=== PATIENT | female | born 1960 | race Native Hawaiian/Other Pacific Islander ===

== ENCOUNTER 2016-11-04 17:22 | Emergency (ER) | payer SELFPAY ==
[~2016-11-04] VITALS: Ht 165.1 cm; Wt 68.2 kg
[~2016-11-04 17:22] MED LIST: ALBU17AE27 IH; ALBU8.5H IH
[2016-11-04] MEDS ORDERED: BECL8.7A5 IH (17:44)
[2016-11-04] MEDS ORDERED: IPRATROPIUM BROMIDE 0.5 MG/2.5 ML NEB SOLUTION NEB ONE ×2 (17:45→19:30)
[2016-11-04] MEDS ORDERED: ALBUTEROL SULFATE 2.5 MG/0.5 ML NEB SOLUTION NEB ONE ×2 (17:45→19:30)
[2016-11-04 17:53] LABS: GLUCOSE,POINT OF CARE 113 MG/DL (70-110)
[2016-11-04] MEDS ORDERED: PredniSONE 20 MG TABLET PO ONE (19:30)
[2016-11-04 19:58] VITALS: BP 134/85
== END 2016-11-04 20:29 | disposition home or self-care (01) ==
LOC: EMS 17:23
DX: J45.909 Unspecified asthma, uncomplicated (principal); Z87.891 Personal history of nicotine dependence
CPT/HCPCS: 71020; 82962; 94060; 94640; 99284; J7512; J7613